=== PATIENT | male | born 1995 | race Two or more races ===

== ENCOUNTER 2018-01-04 05:24 | Emergency (ER) | payer SELFPAY ==
[~2018-01-04] VITALS: Ht 188 cm; Wt 72.6 kg
[2018-01-04] MEDS ORDERED: VISTARIL50 MG ORAL (05:29)
[2018-01-04] MEDS ORDERED: SEROQUEL100 MG ORAL (05:29)
--- NOTE | 2018-01-04 05:29 | Emergency Room Report ---
History of Present Illness General Chief Complaint: Substance Abuse Source: Patient Present Illness HPI Is a 22-year-old male with a history of heroin abuse. He presents as an overdose. His friend called 911 because he was unresponsive after using heroin. EMS gave him Narcan intranasally. Now he is awake vomiting. Patient said that he was clean for 2 weeks and start using again today. He was using IV heroin. Denies suicidal thoughts homicidal thought. Denies any other complaint. Allergies: Coded Allergies: No Known Allergies (Unverified , 01/04/18) Patient History Past Medical History: see triage record, old chart reviewed Past Surgical History: other Pertinent Family History: none Social History: Reports: smoking, alcohol use, drug use Immunizations: other Reviewed Nursing Documentation: PMH: Agreed; PSxH: Agreed Nursing Documentation-PMH Past Medical History: No Stated History Review of Systems Eye: Denies: eye pain, blurred vision ENT: Denies: ear pain, nose congestion, throat swelling Respiratory: Denies: cough, shortness of breath Cardiovascular: Denies: chest pain, palpitations Gastrointestinal: Denies: abdominal pain, diarrhea, nausea, vomiting Musculoskeletal: Denies: back pain, joint pain Skin: Denies: rash Neurological: Denies: headache, numbness Endocrine: Denies: increased thirst, increased urine Hematologic/Lymphatic: Denies: easy bruising All Other Systems: negative except mentioned in HPI Physical Exam Vital Signs Date Time Temp Pulse Resp B/P (MAP) Pulse Ox O2 Delivery O2 Flow Rate FiO2 01/04/18 05:22 96.0 55 18 156/98 99 Room Air 96.1 vitals normal Sp02 EP Interpretation: reviewed, normal General Appearance: well appearing, no apparent distress, alert Head: normocephalic, atraumatic Eyes: bilateral eye PERRL, bilateral eye EOMI ENT: hearing grossly normal, normal pharynx Neck: full range of motion, supple, no meningismus Respiratory: chest non-tender, lungs clear, normal breath sounds Cardiovascular #1: regular rate, rhythm, no murmur Gastrointestinal: normal bowel sounds, non tender, no mass, no organomegaly, no bruit, non-distended Musculoskeletal: back normal, gait/station normal, normal range of motion Neurologic: alert, oriented x3 Psychiatric: mood/affect normal Skin: warm/dry Medical Decision Making Diagnostic Impression: Primary Impression: Heroin overdose Qualified Codes: T40.1X1A - Poisoning by heroin, accidental (unintentional), initial encounter ER Course Patient presents with heroin overdose. No criteria for 5150. He is not suicidal or homicidal. This was accidental. He is high risk for future overdose, and morbidity. Advice rehabilitation. This patient is a chronic risk of self injury due to poor impulse control, limited coping skills, and judgment intermittently impaired by intoxication. I believe that the available clinical evidence to suggest that these characteristics derived primarily from personality disorder and are likely very stable over time. Hospitalization would likely attenuate risk of self-harm only during senior care period, without lasting risk reduction. Serious self-harm , while possible, would likely be inadvertent, and because of impulsivity, and foreseeable. For these reasons, I do not believe hospitalization would provide meaningful reduction in risk of self-harm. Last Vital Signs Date Time Temp Pulse Resp B/P (MAP) Pulse Ox O2 Delivery O2 Flow Rate FiO2 01/04/18 05:22 96.0 55 18 156/98 99 Room Air 96.1 Status: improved Disposition: HOME, SELF-CARE Condition: Stable Additional Instructions: Stop using drugs. Go to rehabilitation. Follow-up with your doctor in 7 days. Return if worse. TESFAYE RUBY M.D. Jan 04, 2018 05:28
[2018-01-04 05:31] VITALS: BP 156/98
[2018-01-04 06:51] VITALS: BP 134/96
[2018-01-04 06:53] VITALS: BP 134/96
== END 2018-01-04 06:53 | disposition home or self-care (01) ==
LOC: EDBD 05:24 → EMR 06:30
DX: T40.1X1A Poisoning by heroin, accidental (unintentional), initial encounter (principal); Y92.9 Unspecified place or not applicable; F10.10 Alcohol abuse, uncomplicated; F17.200 Nicotine dependence, unspecified, uncomplicated
CPT/HCPCS: 96374; 99284; J2405